=== PATIENT | male | born 1935 ===

== ENCOUNTER 2020-08-26 13:12 | Inpatient (IN) ==
[2020-08-26 14:34] LABS: INR 1.55 (0.82-1.09)
[2020-08-26 14:35] LABS: ABS Lymphocytes 0.7 10^3/ul (1.0-4.8); ABS Monocytes 0.1 10^3/ul (0-0.8); ABS Neutrophils 6.4 10^3/ul (1.5-7.7); Eosinophil % 0.4 %; Hematocrit 30 % (42-52); Hemoglobin 10.2 g/dL (14.0-18.0); Mean Corpuscular HGB Conc 34 g/dL (31-36); Mean Corpuscular Hemoglobin 37 pg (27-31); Mean Corpuscular Volume 110 fL (80-94); Mean Platelet Volume 9.4 fL (7.4-10.4); Platelet Count 69 10^3/uL (150-450); Red Blood Count 2.73 10^6 /uL (4.18-5.48); Red Cell Distribution Width 19 % (10-15); White Blood Count 7.2 10^3/uL (3.5-10.8)
[2020-08-26 14:47] LABS: ALT 36 U/L (7-52); Albumin 2.4 g/dL (3.2-5.2); Albumin/Globulin Ratio 0.9 (1-3); Alkaline Phosphatase 85 U/L (34-104); BUN/Creatinine Ratio 28.6 (8-20); Blood Urea Nitrogen 73 mg/dL (6-24); CO2 Carbon Dioxide 26 mmol/L (22-32); Calcium 7.3 mg/dL (8.6-10.3); Chloride 101 mmol/L (101-111); EGFR African American 29.3 (>60); EGFR Non-African American 24.2 (>60); Globulin 2.6 g/dL (2-4); Glucose 114 mg/dL (70-100); Sodium 136 mmol/L (135-145)
[2020-08-26 14:49] LABS: Anion Gap 9 mmol/L (2-11)
[2020-08-26] MEDS ORDERED: NS 0.9% 1000 ml BAG 1,000 ML IV ONE (14:53)
[2020-08-26] MEDS ORDERED: NS 0.9% 1000 ml BAG 1,000 ML IV SCH (17:00)
[2020-08-26 17:31] LABS: Platelet Count 69 10^3/ul (150-450)
[2020-08-26 17:45] LABS: Activated Partial Thrombo Time 28.4 seconds (26.0-38.0); Fibrinogen 428.9 mg/dL (110.8-404.3)
[2020-08-26] MEDS ORDERED: Morphine 2 MG/ML SYRINGE IV PRN (18:33)
[2020-08-26 18:49] LABS: Urine Appearance Cloudy; Urine Bilirubin Negative (Negative); Urine Blood 2+ (Negative); Urine Color Amber; Urine Glucose Negative (Negative); Urine Ketones Negative (Negative); Urine Nitrite Negative (Negative); Urine Protein Negative (Negative); Urine Specific Gravity 1.019 (1.010-1.030); Urine Urobilinogen Negative (Negative)
[2020-08-26 18:53] LABS: Urine Bacteria 2+ (Absent); Urine Red Blood Cell Trace(0-2/hpf) (Absent); Urine White Blood Cell 2+(11-20/hpf) (Absent)
[2020-08-26 18:55] LABS: Schistocytes ABSENT
[2020-08-26 18:57] LABS: Urine Creatinine Concentration 113.9 mg/dL
[2020-08-26 20:42] LABS: TSH Ultra Thyroid Stim Horm 2.06 mcIU/mL (0.34-5.60)
[2020-08-26 20:53] LABS: Folate > 20.00 ng/mL (>3.99)
[2020-08-26 20:55] LABS: Vitamin B12 856 pg/mL (180-914)
[2020-08-26 21:36] LABS: Potassium Redraw 4.4 mmol/L (3.5-5.0)
[2020-08-26] MEDS: Insulin GLARGINE 100 un/ml 10 ml VIAL SUBCUT SCH (21:49)
[2020-08-27] MEDS ORDERED: NS 0.9% 1000 ml BAG 1,000 ML IV SCH (07:00)
[2020-08-27 08:16] LABS: Nucleated Red Blood Cells % 0.1
[2020-08-27 08:17] LABS: ABS Lymphocytes 0.5 10^3/ul (1.0-4.8); ABS Monocytes 0.1 10^3/ul (0-0.8); ABS Neutrophils 4.7 10^3/ul (1.5-7.7); Corrected Retic Count 1.6 % (0.5-1.5); Eosinophil % 0.1 %; Hematocrit 25 % (42-52); Hematocrit for Retic CNT 25 % (42-52); Hemoglobin 8.6 g/dL (14.0-18.0); Immature Retic Fraction 0.59; Lymphocyte % 10.1 %; Mean Corpuscular HGB Conc 34 g/dL (31-36); Mean Corpuscular Hemoglobin 38 pg (27-31); Mean Corpuscular Volume 110 fL (80-94); Platelet Count 60 10^3/uL (150-450); Red Cell Distribution Width 19 % (10-15); White Blood Count 5.4 10^3/uL (3.5-10.8)
[2020-08-27 08:32] LABS: Albumin 2.1 g/dL (3.2-5.2); Albumin/Globulin Ratio 0.9 (1-3); BUN/Creatinine Ratio 32.4 (8-20); Calcium 6.9 mg/dL (8.6-10.3); EGFR African American 43.3 (>60); EGFR Non-African American 35.8 (>60); Globulin 2.4 g/dL (2-4); Potassium 3.9 mmol/L (3.5-5.0); Total Bilirubin 2.2 mg/dL (0.2-1.0); Total Protein 4.5 g/dL (6.4-8.9)
[2020-08-27 17:11] LABS: Hematocrit 28 % (42-52); Hemoglobin 9.4 g/dL (14.0-18.0)
[2020-08-27 17:29] LABS: Albumin 2.3 g/dL (3.2-5.2); Albumin/Globulin Ratio 0.9 (1-3); Globulin 2.5 g/dL (2-4); Indirect Bilirubin 1.3 mg/dL (0.3-1.0); Total Bilirubin 2.2 mg/dL (0.2-1.0); Total Protein 4.8 g/dL (6.4-8.9)
[2020-08-27] MEDS: Insulin GLARGINE 100 un/ml 10 ml VIAL SUBCUT SCH (22:17)
[2020-08-27] MEDS ORDERED: NS 0.9% 1000 ml BAG 1,000 ML IV ONE (23:30)
[2020-08-28 07:10] LABS: ABS Eosinophils 0.1 10^3/ul (0-0.6); ABS Lymphocytes 0.4 10^3/ul (1.0-4.8); ABS Monocytes 0.1 10^3/ul (0-0.8); Eosinophil % 1.6 %; Hematocrit 25 % (42-52); Lymphocyte % 11.1 %; Mean Corpuscular HGB Conc 33 g/dL (31-36); Mean Corpuscular Hemoglobin 36 pg (27-31); Mean Corpuscular Volume 109 fL (80-94); Mean Platelet Volume 10.5 fL (7.4-10.4); Nucleated Red Blood Cells % 0.1; Platelet Count 49 10^3/uL (150-450); Red Blood Count 2.24 10^6 /uL (4.18-5.48); Red Cell Distribution Width 19 % (10-15); White Blood Count 3.5 10^3/uL (3.5-10.8)
[2020-08-28 07:17] LABS: Albumin 1.8 g/dL (3.2-5.2); Albumin/Globulin Ratio 0.8 (1-3); Calcium 6.7 mg/dL (8.6-10.3); EGFR African American 57.6 (>60); EGFR Non-African American 47.6 (>60); Globulin 2.3 g/dL (2-4); Magnesium 2.1 mg/dL (1.9-2.7); Total Bilirubin 1.8 mg/dL (0.2-1.0); Total Protein 4.1 g/dL (6.4-8.9)
[2020-08-28] MEDS: Dextrose 50% Syringe 50 ml 25 GM/50 ML SYRINGE IV PUSH PRN (08:01)
[2020-08-28] MEDS: KCL 20 MEQ/100 ML IVPREMIX 20 MEQ/100 ML BAG IV SCH ×3 (08:13→12:06)
[2020-08-28] MEDS ORDERED: Potassium Chloride LIQUID 20 MEQ/15 ML LIQUID PO ONE (08:31)
[2020-08-28] MEDS ORDERED: Vancomycin 1,000 MG in NS 0.9% 250 ml 250 ML IVPB ONE (10:21)
[2020-08-28] MEDS ORDERED: Piperacillin/Tazobac ADVAN 3.375 GM in NS 0.9% 100 ml BAG 100 ML IV ONE (10:21)
[2020-08-28] MEDS ORDERED: Vancomycin per Pharmacy 1 EA NOTE FOLLOW UP SCH (11:00)
[2020-08-28] MEDS ORDERED: Zosyn per Pharmacy NOTE FOLLOW UP SCH (11:00)
[2020-08-28 14:25] LABS: Platelet Count 40 10^3/ul (150-450)
[2020-08-28 14:28] LABS: ABS Eosinophils 0.1 10^3/ul (0-0.6); ABS Lymphocytes 0.4 10^3/ul (1.0-4.8); ABS Monocytes 0.1 10^3/ul (0-0.8); ABS Neutrophils 3.8 10^3/ul (1.5-7.7); Eosinophil % 2.1 %; Hematocrit 25 % (42-52); Hemoglobin 8.4 g/dL (14.0-18.0); Lymphocyte % 9.9 %; Mean Corpuscular HGB Conc 33 g/dL (31-36); Mean Corpuscular Hemoglobin 37 pg (27-31); Mean Corpuscular Volume 110 fL (80-94); Mean Platelet Volume 8.8 fL (7.4-10.4); Platelet Count 41 10^3/uL (150-450); Red Blood Count 2.29 10^6 /uL (4.18-5.48); Red Cell Distribution Width 19 % (10-15); White Blood Count 4.4 10^3/uL (3.5-10.8)
[2020-08-28 14:41] LABS: Activated Partial Thrombo Time 33.4 seconds (26.0-38.0); INR 1.35 (0.82-1.09)
[2020-08-28 14:45] LABS: Schistocytes ABSENT
[2020-08-28] MEDS: ZOSYN 3.375 GM Q8H per EXTENDED INFUSION IV SCH ×2 (15:43→23:53)
[2020-08-28] MEDS ORDERED: Phytonadione IV (Adult) 10 MG in NS 0.9% 50 ML 50 ML IV ONE (16:05)
[2020-08-28] MEDS ORDERED: Insulin GLARGINE 100 un/ml 10 ml VIAL SUBCUT SCH (21:00)
[2020-08-28] MEDS: Vancomycin 750 MG in NS 0.9% 250 ML IVPB SCH (21:50)
[2020-08-29 07:49] LABS: Hematocrit 24 % (42-52); Mean Corpuscular HGB Conc 33 g/dL (31-36); Mean Corpuscular Hemoglobin 37 pg (27-31); Mean Corpuscular Volume 110 fL (80-94); Mean Platelet Volume 8.8 fL (7.4-10.4); Platelet Count 33 10^3/uL (150-450); Red Blood Count 2.19 10^6 /uL (4.18-5.48); Red Cell Distribution Width 19 % (10-15); White Blood Count 3.7 10^3/uL (3.5-10.8)
[2020-08-29 07:54] LABS: Albumin 1.6 g/dL (3.2-5.2); Albumin/Globulin Ratio 0.7 (1-3); BUN/Creatinine Ratio 28.7 (8-20); Calcium 6.7 mg/dL (8.6-10.3); EGFR African American 64.4 (>60); EGFR Non-African American 53.2 (>60); Globulin 2.4 g/dL (2-4); Magnesium 2.1 mg/dL (1.9-2.7); Potassium 3.6 mmol/L (3.5-5.0); Total Bilirubin 1.7 mg/dL (0.2-1.0)
[2020-08-29] MEDS: ZOSYN 3.375 GM Q8H per EXTENDED INFUSION IV SCH (10:11)
[2020-08-29] MEDS: Vancomycin 750 MG in NS 0.9% 250 ML IVPB SCH (13:40)
[2020-08-29] MEDS: Ciprofloxacin 400mg IVPREMIX 400 MG/200 ML BAG IVPB SCH (15:29)
[2020-08-30] MEDS: Vancomycin 750 MG in NS 0.9% 250 ML IVPB SCH ×2 (02:38→14:56)
[2020-08-30] MEDS: Ciprofloxacin 400mg IVPREMIX 400 MG/200 ML BAG IVPB SCH ×2 (04:26→17:27)
[2020-08-30 08:10] LABS: Hematocrit 25 % (42-52); Hemoglobin 8.2 g/dL (14.0-18.0); Mean Corpuscular HGB Conc 33 g/dL (31-36); Mean Corpuscular Hemoglobin 36 pg (27-31); Mean Corpuscular Volume 109 fL (80-94); Mean Platelet Volume 10.2 fL (7.4-10.4); Platelet Count 38 10^3/uL (150-450); Red Blood Count 2.26 10^6 /uL (4.18-5.48); Red Cell Distribution Width 19 % (10-15)
[2020-08-30 08:26] LABS: EGFR African American 63.2 (>60); EGFR Non-African American 52.3 (>60)
[2020-08-30] MEDS ORDERED: Vancomycin Trough Check NOTE FOLLOW UP ONE (13:30)
[2020-08-30 15:30] LABS: HIT ELISA 1.821 OD (<0.400); Heparin PF4 Ab Inhibition 98 %
[2020-08-30 17:50] LABS: C Reactive Protein 153.76 mg/L (<8.01)
[2020-08-30 18:38] LABS: Erythrocyte Sed Rate 14 mm/Hr (0-19)
[2020-08-31] MEDS: Vancomycin 750 MG in NS 0.9% 250 ML IVPB SCH ×2 (02:02→16:56)
[2020-08-31] MEDS: Ciprofloxacin 400mg IVPREMIX 400 MG/200 ML BAG IVPB SCH ×2 (03:36→19:07)
[2020-08-31 06:02] LABS: Hematocrit 27 % (42-52); Hemoglobin 9.1 g/dL (14.0-18.0); Mean Corpuscular HGB Conc 34 g/dL (31-36); Mean Corpuscular Hemoglobin 37 pg (27-31); Mean Corpuscular Volume 109 fL (80-94); Mean Platelet Volume 10.8 fL (7.4-10.4); Platelet Count 50 10^3/uL (150-450); Red Blood Count 2.47 10^6 /uL (4.18-5.48); Red Cell Distribution Width 19 % (10-15); White Blood Count 4.8 10^3/uL (3.5-10.8)
[2020-08-31 06:20] LABS: BUN/Creatinine Ratio 29.6 (8-20); Calcium 6.8 mg/dL (8.6-10.3); EGFR African American 42.2 (>60); EGFR Non-African American 34.9 (>60); Potassium 4.7 mmol/L (3.5-5.0)
[2020-08-31 09:21] LABS: C Reactive Protein 109.73 mg/L (<8.01)
[2020-08-31 10:12] LABS: Total Iron Binding Capacity 105 mcg/dL (250-450); Transferrin < 75 mg/dL (203-362)
[2020-08-31 10:16] LABS: Body Fluid Source Synovial Fluid
[2020-08-31 10:30] LABS: Ferritin 1398.9 ng/mL (24-336)
[2020-08-31] MEDS ORDERED: Argatroban 250 MG in NS 0.9% 250 ml 247.5 ML IV SCH (12:00)
[2020-08-31] MEDS ORDERED: NS 0.9% 500 ml BAG 500 ML IV ONE (12:16)
[2020-08-31 12:32] LABS: Body Fluid Mono 4 %; Body Fluid NRBC 1
[2020-08-31 15:10] LABS: Activated Partial Thrombo Time 26.6 seconds (26.0-38.0); INR 1.55 (0.82-1.09)
[2020-08-31] MEDS: Silver Sulfadiazine 1% 20 gm TUBE TOPICAL SCH (20:43)
[2020-08-31] MEDS: Insulin GLARGINE 100 un/ml 10 ml VIAL SUBCUT SCH (21:22)
[2020-09-01] MEDS: Vancomycin 750 MG in NS 0.9% 250 ML IVPB SCH ×2 (01:05→18:22)
[2020-09-01 05:28] LABS: BUN/Creatinine Ratio 30.6 (8-20); Calcium 6.5 mg/dL (8.6-10.3); EGFR African American 40.4 (>60); EGFR Non-African American 33.4 (>60)
[2020-09-01 05:41] LABS: Potassium 3.8 mmol/L (3.5-5.0)
[2020-09-01 06:06] LABS: Hematocrit 18 % (42-52); Hemoglobin 5.6 g/dL (14.0-18.0); Mean Corpuscular HGB Conc 32 g/dL (31-36); Mean Corpuscular Hemoglobin 36 pg (27-31); Mean Corpuscular Volume 114 fL (80-94); Mean Platelet Volume 11.5 fL (7.4-10.4); Platelet Count 38 10^3/uL (150-450); Red Blood Count 1.57 10^6 /uL (4.18-5.48); Red Cell Distribution Width 19 % (10-15); White Blood Count 3.2 10^3/uL (3.5-10.8)
[2020-09-01 06:53] LABS: ABS Lymphocytes 1.2 10^3/ul (1.0-4.8); ABS Monocytes 0.2 10^3/ul (0-0.8); Eosinophil % 0.1 %; Hematocrit 27 % (42-52); Hemoglobin 8.9 g/dL (14.0-18.0); Lymphocyte % 27.7 %; Mean Corpuscular HGB Conc 33 g/dL (31-36); Mean Corpuscular Hemoglobin 37 pg (27-31); Mean Corpuscular Volume 110 fL (80-94); Mean Platelet Volume 10.9 fL (7.4-10.4); Nucleated Red Blood Cells % 0.3; Platelet Count 61 10^3/uL (150-450); Red Blood Count 2.44 10^6 /uL (4.18-5.48); Red Cell Distribution Width 19 % (10-15); White Blood Count 4.5 10^3/uL (3.5-10.8)
[2020-09-01] MEDS ORDERED: Ciprofloxacin 400mg IVPREMIX 400 MG/200 ML BAG IVPB SCH (08:00)
[2020-09-01] MEDS: Silver Sulfadiazine 1% 20 gm TUBE TOPICAL SCH ×2 (09:08→21:46)
[2020-09-01] MEDS ORDERED: Vancomycin Trough Check NOTE FOLLOW UP ONE (13:30)
[2020-09-01] MEDS ORDERED: fentaNYL 250 mcg/5 ml 50 MCG/ML 5 ml VIAL (250 MCG) ONE (14:57)
[2020-09-01] MEDS ORDERED: Lidocaine 2% PF 5 ML VIAL ONE (14:57)
[2020-09-01] MEDS ORDERED: Propofol 10 MG/ML 20 ML BTL ONE (14:57)
[2020-09-01] MEDS ORDERED: Ondansetron 4 mg VIAL 2 MG/ML 2 ml VIAL ONE (16:39)
[2020-09-01] MEDS ORDERED: Phenylephrine 40 mcg/mL 10mL (400mcg) SYRINGE ONE (16:58)
[2020-09-01] MEDS ORDERED: Phenylephrine IV 10 MG/ML 1 ml VIAL ONE (16:58)
[2020-09-01] MEDS ORDERED: HYDROmorphone 1 MG/1 ML SYRINGE IV PRN (16:59)
[2020-09-01] MEDS ORDERED: Ondansetron 4 mg VIAL 2 MG/ML 2 ml VIAL IV PRN (16:59)
[2020-09-01] MEDS ORDERED: Naloxone 0.4 mg VIAL 0.4 mg/ml 1 ml VIAL IV PRN (16:59)
[2020-09-01] MEDS ORDERED: fentaNYL 100 mcg/2 ml 50 MCG/ML VIAL IV PRN (16:59)
[2020-09-01] MEDS ORDERED: Argatroban 250 MG in NS 0.9% 250 ml 247.5 ML IV SCH (18:00)
[2020-09-01] MEDS: Insulin GLARGINE 100 un/ml 10 ml VIAL SUBCUT SCH (21:45)
[2020-09-02 04:41] LABS: Hematocrit 26 % (42-52); Hemoglobin 8.3 g/dL (14.0-18.0); Mean Corpuscular HGB Conc 33 g/dL (31-36); Mean Corpuscular Hemoglobin 36 pg (27-31); Mean Corpuscular Volume 109 fL (80-94); Mean Platelet Volume 10.1 fL (7.4-10.4); Platelet Count 85 10^3/uL (150-450); Red Blood Count 2.33 10^6 /uL (4.18-5.48); Red Cell Distribution Width 19 % (10-15); White Blood Count 4.8 10^3/uL (3.5-10.8)
[2020-09-02 04:55] LABS: BUN/Creatinine Ratio 33.3 (8-20); Calcium 6.9 mg/dL (8.6-10.3); EGFR African American 40.7 (>60); EGFR Non-African American 33.6 (>60); Potassium 4.5 mmol/L (3.5-5.0)
[2020-09-02 05:35] LABS: Activated Partial Thrombo Time 114.7 seconds (26.0-38.0); INR 7.03 (0.82-1.09)
[2020-09-02] MEDS ORDERED: Vancomycin Random Level NOTE FOLLOW UP ONE (06:00)
[2020-09-02 08:12] LABS: Magnesium 2.2 mg/dL (1.9-2.7); Phosphorus 3.2 mg/dL (2.5-5.0)
[2020-09-02] MEDS: Silver Sulfadiazine 1% 20 gm TUBE TOPICAL SCH (08:22)
[2020-09-02 10:03] LABS: Activated Partial Thrombo Time 96.9 seconds (26.0-38.0)
[2020-09-02 10:15] LABS: INR 5.79 (0.82-1.09)
[2020-09-02] MEDS ORDERED: Albumin Human 5% 12.5 GM/250 ML BTL IV ONE (10:38)
[2020-09-02 11:06] LABS: Urine Appearance Clear; Urine Bilirubin Negative (Negative); Urine Blood 1+ (Negative); Urine Color Amber; Urine Glucose Negative (Negative); Urine Ketones Negative (Negative); Urine Nitrite Negative (Negative); Urine Protein Negative (Negative); Urine Specific Gravity 1.019 (1.010-1.030); Urine Urobilinogen Negative (Negative)
[2020-09-02 11:14] LABS: Urine Bacteria Absent (Absent); Urine Red Blood Cell Trace(0-2/hpf) (Absent); Urine White Blood Cell Trace(0-5/hpf) (Absent)
[2020-09-02] MEDS: Lactated Ringers 1000 ml BAG 1,000 ML IV SCH ×2 (13:20→21:20)
[2020-09-02] MEDS: Insulin GLARGINE 100 un/ml 10 ml VIAL SUBCUT SCH (21:34)
[2020-09-03] MEDS: Silver Sulfadiazine 1% 85 GM TOPICAL SCH ×3 (00:50→21:25)
[2020-09-03] MEDS: Lactated Ringers 1000 ml BAG 1,000 ML IV SCH (04:06)
[2020-09-03] MEDS: Silver Sulfadiazine 1% 20 gm TUBE TOPICAL SCH (04:59)
[2020-09-03 05:07] LABS: EGFR African American 53.7 (>60); EGFR Non-African American 44.4 (>60)
[2020-09-03 05:08] LABS: Hematocrit 22 % (42-52); Hemoglobin 7.4 g/dL (14.0-18.0); Mean Corpuscular HGB Conc 33 g/dL (31-36); Mean Corpuscular Hemoglobin 36 pg (27-31); Mean Corpuscular Volume 109 fL (80-94); Mean Platelet Volume 9.9 fL (7.4-10.4); Platelet Count 79 10^3/uL (150-450); Red Blood Count 2.06 10^6 /uL (4.18-5.48); Red Cell Distribution Width 19 % (10-15); White Blood Count 3.7 10^3/uL (3.5-10.8)
[2020-09-03 05:35] LABS: Vancomycin Random 15.4 mcg/mL
[2020-09-03] MEDS ORDERED: VANCOMYCIN 1250 MG X 1 DOSE, THEN PER PHARMACY PROTOCOL IVPB ONE (09:00)
[2020-09-03] MEDS ORDERED: Haloperidol 5 mg/ml SDV IV/IM 5 MG/ML AMP ONE (12:53)
[2020-09-03 13:05] LABS: INR 4.88 (0.82-1.09)
[2020-09-03] MEDS ORDERED: Haloperidol 5 mg/ml SDV IV/IM 5 MG/ML AMP IV SLOW PU ONE (13:15)
[2020-09-03] MEDS ORDERED: Haloperidol 5 mg/ml SDV IV/IM 5 MG/ML AMP IV SLOW PU PRN (13:16)
[2020-09-03] MEDS: Thiamine 100 MG/ML 2 ml VIAL 500 MG in NS 0.9% 250 ml 250 ML IV SCH ×2 (16:15→21:26)
[2020-09-03] MEDS: Insulin GLARGINE 100 un/ml 10 ml VIAL SUBCUT SCH ×2 (21:05→21:24)
[2020-09-04] MEDS: Dextrose 50% Syringe 50 ml 25 GM/50 ML SYRINGE IV PUSH PRN (00:31)
[2020-09-04] MEDS: Lactated Ringers 1000 ml BAG 1,000 ML IV SCH ×4 (00:58→22:21)
[2020-09-04 05:22] LABS: ABS Monocytes 0.2 10^3/ul (0-0.8); ABS Neutrophils 3.3 10^3/ul (1.5-7.7); Eosinophil % 0.5 %; Hematocrit 24 % (42-52); Lymphocyte % 22.4 %; Mean Corpuscular HGB Conc 34 g/dL (31-36); Mean Corpuscular Hemoglobin 37 pg (27-31); Mean Corpuscular Volume 109 fL (80-94); Mean Platelet Volume 9.8 fL (7.4-10.4); Nucleated Red Blood Cells % 0.1; Platelet Count 91 10^3/uL (150-450); Red Blood Count 2.18 10^6 /uL (4.18-5.48); Red Cell Distribution Width 19 % (10-15); White Blood Count 4.4 10^3/uL (3.5-10.8)
[2020-09-04 05:24] LABS: INR 4.72 (0.82-1.09)
[2020-09-04 05:29] LABS: EGFR African American 55.8 (>60); EGFR Non-African American 46.1 (>60)
[2020-09-04 05:56] LABS: Vancomycin Random 18.9 mcg/mL
[2020-09-04] MEDS: Thiamine 100 MG/ML 2 ml VIAL 500 MG in NS 0.9% 250 ml 250 ML IV SCH ×3 (05:57→22:18)
[2020-09-04] MEDS ORDERED: Vancomycin Random Level NOTE FOLLOW UP ONE (06:00)
[2020-09-04] MEDS ORDERED: Vancomycin 750 MG in NS 0.9% 250 ML IVPB ONE (09:30)
[2020-09-04 10:02] LABS: Calcium 6.7 mg/dL (8.6-10.3); Potassium 4.1 mmol/L (3.5-5.0)
[2020-09-04] MEDS: Silver Sulfadiazine 1% 85 GM TOPICAL SCH ×2 (10:07→21:14)
[2020-09-04 11:00] LABS: BUN/Creatinine Ratio 31.3 (8-20)
[2020-09-04] MEDS: Warfarin DAILY REMINDER **NOTE FOLLOW UP SCH (17:41)
[2020-09-04] MEDS: ARGATROBAN IV SCH (18:41)
[2020-09-04] MEDS: Insulin GLARGINE 100 un/ml 10 ml VIAL SUBCUT SCH (21:24)
[2020-09-05] MEDS: ARGATROBAN IV SCH (03:05)
[2020-09-05] MEDS: Lactated Ringers 1000 ml BAG 1,000 ML IV SCH ×4 (05:12→22:05)
[2020-09-05] MEDS: Thiamine 100 MG/ML 2 ml VIAL 500 MG in NS 0.9% 250 ml 250 ML IV SCH ×2 (05:27→14:12)
[2020-09-05 05:34] LABS: INR 4.62 (0.82-1.09)
[2020-09-05 05:36] LABS: Hematocrit 23 % (42-52); Hemoglobin 7.8 g/dL (14.0-18.0); Mean Corpuscular HGB Conc 34 g/dL (31-36); Mean Corpuscular Hemoglobin 37 pg (27-31); Mean Corpuscular Volume 109 fL (80-94); Mean Platelet Volume 9.4 fL (7.4-10.4); Platelet Count 96 10^3/uL (150-450); Red Blood Count 2.12 10^6 /uL (4.18-5.48); Red Cell Distribution Width 19 % (10-15); White Blood Count 5.1 10^3/uL (3.5-10.8)
[2020-09-05 05:43] LABS: BUN/Creatinine Ratio 29.1 (8-20); Blood Urea Nitrogen 43 mg/dL (6-24); CO2 Carbon Dioxide 26 mmol/L (22-32); Calcium 6.5 mg/dL (8.6-10.3); EGFR African American 54.9 (>60); EGFR Non-African American 45.4 (>60); Glucose 100 mg/dL (70-100); Magnesium 1.8 mg/dL (1.9-2.7); Phosphorus 2.7 mg/dL (2.5-5.0); Sodium 138 mmol/L (135-145)
[2020-09-05 05:47] LABS: Chloride 112 mmol/L (101-111)
[2020-09-05] MEDS ORDERED: Vancomycin Random Level NOTE FOLLOW UP ONE (06:00)
[2020-09-05] MEDS ORDERED: Magnesium Sulfate 2 gm BAG 2 GM/50 ML BAG IVPB ONE (07:20)
[2020-09-05] MEDS: Silver Sulfadiazine 1% 85 GM TOPICAL SCH ×2 (07:50→21:22)
[2020-09-05] MEDS: Vancomycin 750 MG in NS 0.9% 250 ML IVPB SCH (08:58)
[2020-09-05] MEDS ORDERED: Albumin Human 5% 12.5 GM/250 ML BTL IV ONE (13:40)
[2020-09-05] MEDS ORDERED: Lactated Ringers 1000 ml BAG 500 ML IV ONE (13:41)
[2020-09-05] MEDS ORDERED: Albumin Human 25% 25 GM/100 ML BTL IV ONE (16:07)
[2020-09-05] MEDS ORDERED: Furosemide 40 mg/4 ml IV VIAL IV SLOW PU ONE (16:30)
[2020-09-05] MEDS: Warfarin DAILY REMINDER **NOTE FOLLOW UP SCH (17:47)
[2020-09-05] MEDS: Insulin GLARGINE 100 un/ml 10 ml VIAL SUBCUT SCH (20:19)
[2020-09-06 04:10] LABS: Hematocrit 23 % (42-52); Hemoglobin 7.8 g/dL (14.0-18.0); Mean Corpuscular HGB Conc 33 g/dL (31-36); Mean Corpuscular Hemoglobin 36 pg (27-31); Mean Corpuscular Volume 109 fL (80-94); Mean Platelet Volume 9.1 fL (7.4-10.4); Platelet Count 103 10^3/uL (150-450); Red Blood Count 2.14 10^6 /uL (4.18-5.48); Red Cell Distribution Width 19 % (10-15)
[2020-09-06 04:11] LABS: INR 1.88 (0.82-1.09)
[2020-09-06 04:21] LABS: BUN/Creatinine Ratio 26.9 (8-20); Calcium 6.9 mg/dL (8.6-10.3); EGFR African American 51.7 (>60); EGFR Non-African American 42.7 (>60); Magnesium 2.1 mg/dL (1.9-2.7); Potassium 4.1 mmol/L (3.5-5.0)
[2020-09-06] MEDS: Lactated Ringers 1000 ml BAG 1,000 ML IV SCH ×2 (05:54→11:56)
[2020-09-06] MEDS: Silver Sulfadiazine 1% 85 GM TOPICAL SCH ×2 (09:17→23:49)
[2020-09-06] MEDS: Vancomycin 750 MG in NS 0.9% 250 ML IVPB SCH (09:17)
[2020-09-06] MEDS ORDERED: Albumin Human 25% 25 GM/100 ML BTL IV ONE (10:32)
[2020-09-06] MEDS ORDERED: Furosemide 40 mg/4 ml IV VIAL IV SLOW PU ONE (11:00)
[2020-09-06] MEDS: Thiamine 100 MG/ML 2 ml VIAL 250 MG in NS 0.9% 100 ml BAG 100 ML IV SCH (14:46)
[2020-09-06] MEDS: Warfarin DAILY REMINDER **NOTE FOLLOW UP SCH (18:14)
[2020-09-06] MEDS: Insulin GLARGINE 100 un/ml 10 ml VIAL SUBCUT SCH (20:37)
[2020-09-07 06:30] LABS: INR 1.8 (0.82-1.09)
[2020-09-07 06:32] LABS: BUN/Creatinine Ratio 27.9 (8-20); Calcium 7.1 mg/dL (8.6-10.3); EGFR African American 52.5 (>60); EGFR Non-African American 43.4 (>60)
[2020-09-07 06:34] LABS: Hematocrit 24 % (42-52); Hemoglobin 7.9 g/dL (14.0-18.0); Mean Corpuscular HGB Conc 34 g/dL (31-36); Mean Corpuscular Hemoglobin 36 pg (27-31); Mean Corpuscular Volume 108 fL (80-94); Mean Platelet Volume 9.1 fL (7.4-10.4); Platelet Count 92 10^3/uL (150-450); Red Blood Count 2.18 10^6 /uL (4.18-5.48); Red Cell Distribution Width 19 % (10-15); White Blood Count 6.6 10^3/uL (3.5-10.8)
[2020-09-07] MEDS ORDERED: Vancomycin Trough Check NOTE FOLLOW UP ONE (08:30)
[2020-09-07] MEDS: Vancomycin 750 MG in NS 0.9% 250 ML IVPB SCH (11:11)
[2020-09-07] MEDS: Silver Sulfadiazine 1% 85 GM TOPICAL SCH ×2 (12:01→20:49)
[2020-09-07] MEDS: Thiamine 100 MG/ML 2 ml VIAL 250 MG in NS 0.9% 100 ml BAG 100 ML IV SCH (14:50)
[2020-09-07] MEDS: Warfarin DAILY REMINDER **NOTE FOLLOW UP SCH (17:50)
[2020-09-07] MEDS: Insulin GLARGINE 100 un/ml 10 ml VIAL SUBCUT SCH (20:46)
[2020-09-08 04:15] LABS: Hematocrit 24 % (42-52); Hemoglobin 8.1 g/dL (14.0-18.0); Mean Corpuscular HGB Conc 33 g/dL (31-36); Mean Corpuscular Hemoglobin 36 pg (27-31); Mean Corpuscular Volume 108 fL (80-94); Mean Platelet Volume 9.5 fL (7.4-10.4); Platelet Count 99 10^3/uL (150-450); Red Blood Count 2.24 10^6 /uL (4.18-5.48); Red Cell Distribution Width 19 % (10-15); White Blood Count 7.8 10^3/uL (3.5-10.8)
[2020-09-08 04:26] LABS: Calcium 7.2 mg/dL (8.6-10.3); EGFR African American 50.9 (>60); EGFR Non-African American 42.1 (>60); Potassium 4.3 mmol/L (3.5-5.0)
[2020-09-08 07:50] LABS: Activated Partial Thrombo Time 37.6 seconds (26.0-38.0); INR 2.24 (0.82-1.09)
[2020-09-08] MEDS: Vancomycin 750 MG in NS 0.9% 250 ML IVPB SCH (10:40)
[2020-09-08] MEDS: Silver Sulfadiazine 1% 85 GM TOPICAL SCH (10:43)
[2020-09-08] MEDS: Warfarin DAILY REMINDER **NOTE FOLLOW UP SCH (18:33)
[2020-09-08] MEDS: Insulin GLARGINE 100 un/ml 10 ml VIAL SUBCUT SCH (21:27)
[2020-09-09] MEDS: Silver Sulfadiazine 1% 85 GM TOPICAL SCH ×2 (00:50→09:52)
[2020-09-09 05:17] LABS: INR 2.98 (0.82-1.09)
[2020-09-09 05:18] LABS: ABS Lymphocytes 2.1 10^3/ul (1.0-4.8); ABS Monocytes 0.5 10^3/ul (0-0.8); ABS Neutrophils 4.7 10^3/ul (1.5-7.7); Eosinophil % 0.3 %; Hematocrit 25 % (42-52); Hemoglobin 7.9 g/dL (14.0-18.0); Lymphocyte % 28.4 %; Mean Corpuscular HGB Conc 32 g/dL (31-36); Mean Corpuscular Hemoglobin 35 pg (27-31); Mean Corpuscular Volume 108 fL (80-94); Nucleated Red Blood Cells % 0.1; Platelet Count 108 10^3/uL (150-450); Red Blood Count 2.28 10^6 /uL (4.18-5.48); Red Cell Distribution Width 19 % (10-15); White Blood Count 7.4 10^3/uL (3.5-10.8)
[2020-09-09 05:27] LABS: BUN/Creatinine Ratio 33.8 (8-20); Calcium 7.5 mg/dL (8.6-10.3); EGFR African American 51.3 (>60); EGFR Non-African American 42.4 (>60); Potassium 4.4 mmol/L (3.5-5.0)
[2020-09-09] MEDS ORDERED: Vancomycin Trough Check NOTE FOLLOW UP ONE (08:30)
[2020-09-09] MEDS: Vancomycin 750 MG in NS 0.9% 250 ML IVPB SCH (10:18)
[2020-09-09] MEDS ORDERED: Warfarin per PHARMACY **NOTE FOLLOW UP SCH (11:00)
[2020-09-09] MEDS: Vancomycin 500 MG in NS 0.9% 250 ML IVPB SCH (12:19)
[2020-09-09] MEDS: Warfarin DAILY REMINDER **NOTE FOLLOW UP SCH (18:26)
[2020-09-10] MEDS: Insulin GLARGINE 100 un/ml 10 ml VIAL SUBCUT SCH (00:02)
[2020-09-10] MEDS: Silver Sulfadiazine 1% 85 GM TOPICAL SCH ×3 (00:03→11:18)
[2020-09-10 08:03] LABS: INR 4.78 (0.82-1.09)
[2020-09-10 08:46] LABS: ABS Lymphocytes 1.3 10^3/ul (1.0-4.8); ABS Monocytes 0.4 10^3/ul (0-0.8); ABS Neutrophils 4.3 10^3/ul (1.5-7.7); Eosinophil % 0.1 %; Hematocrit 24 % (42-52); Hemoglobin 7.7 g/dL (14.0-18.0); Lymphocyte % 22.3 %; Mean Corpuscular HGB Conc 33 g/dL (31-36); Mean Corpuscular Hemoglobin 35 pg (27-31); Mean Corpuscular Volume 109 fL (80-94); Mean Platelet Volume 9.5 fL (7.4-10.4); Nucleated Red Blood Cells % 0.2; Platelet Count 89 10^3/uL (150-450); Red Blood Count 2.18 10^6 /uL (4.18-5.48); Red Cell Distribution Width 19 % (10-15)
[2020-09-10 08:58] LABS: BUN/Creatinine Ratio 36.9 (8-20); Calcium 7.4 mg/dL (8.6-10.3); EGFR African American 51.3 (>60); EGFR Non-African American 42.4 (>60); Potassium 4.5 mmol/L (3.5-5.0)
[2020-09-10 09:23] LABS: C Reactive Protein 88.75 mg/L (<8.01)
[2020-09-10] MEDS: Vancomycin 500 MG in NS 0.9% 250 ML IVPB SCH (10:52)
[2020-09-10] MEDS ORDERED: Warfarin - No Order Today **NOTE FOLLOW UP ONE (17:00)
[2020-09-10] MEDS: Warfarin DAILY REMINDER **NOTE FOLLOW UP SCH (17:28)
[2020-09-10] MEDS ORDERED: Haloperidol 5 mg/ml SDV IV/IM 5 MG/ML AMP IV SLOW PU ONE (17:47)
[2020-09-10] MEDS ORDERED: Saline FLUSH-CENTRAL 10 ML SYRINGE CENT\\PICC SCH (18:00)
[2020-09-11] MEDS: Nystatin TOP POWDER 15 GM BTL TOPICAL SCH ×3 (00:01→23:18)
[2020-09-11] MEDS: Silver Sulfadiazine 1% 85 GM TOPICAL SCH ×3 (00:01→23:17)
[2020-09-11] MEDS: Insulin GLARGINE 100 un/ml 10 ml VIAL SUBCUT SCH ×2 (00:02→23:37)
[2020-09-11] MEDS: Sodium Chloride FLUSH 10 ml SYRINGE IV FLUSH SCH ×3 (00:14→23:19)
[2020-09-11 02:24] LABS: Hematocrit 28 % (42-52); Hemoglobin 9.2 g/dL (14.0-18.0)
[2020-09-11 05:32] LABS: Hematocrit 29 % (42-52); Hemoglobin 9.5 g/dL (14.0-18.0); Mean Corpuscular HGB Conc 32 g/dL (31-36); Mean Corpuscular Hemoglobin 34 pg (27-31); Mean Corpuscular Volume 106 fL (80-94); Mean Platelet Volume 9.6 fL (7.4-10.4); Platelet Count 108 10^3/uL (150-450); Red Blood Count 2.76 10^6 /uL (4.18-5.48); Red Cell Distribution Width 21 % (10-15); White Blood Count 7.5 10^3/uL (3.5-10.8)
[2020-09-11 05:36] LABS: BUN/Creatinine Ratio 34.6 (8-20); Calcium 7.5 mg/dL (8.6-10.3); EGFR African American 49.5 (>60); EGFR Non-African American 40.9 (>60); Potassium 4.6 mmol/L (3.5-5.0)
[2020-09-11] MEDS ORDERED: Vancomycin Trough Check NOTE FOLLOW UP ONE (10:30)
[2020-09-11 15:08] LABS: Vancomycin Trough 16.1 mcg/mL
[2020-09-11 15:10] LABS: EGFR African American 48.1 (>60); EGFR Non-African American 39.8 (>60)
[2020-09-11 15:19] LABS: INR 7.36 (0.82-1.09)
[2020-09-11] MEDS ORDERED: Phytonadione Oral Solution 5 MG/25 ML UDC PO ONE (15:30)
[2020-09-11] MEDS ORDERED: Warfarin - No Order Today **NOTE FOLLOW UP ONE (17:00)
[2020-09-11] MEDS: Vancomycin 500 MG in NS 0.9% 250 ML IVPB SCH (17:05)
[2020-09-12] MEDS: Silver Sulfadiazine 1% 85 GM TOPICAL SCH ×2 (09:19→20:20)
[2020-09-12] MEDS: Nystatin TOP POWDER 15 GM BTL TOPICAL SCH ×2 (09:19→20:20)
[2020-09-12] MEDS: Sodium Chloride FLUSH 10 ml SYRINGE IV FLUSH SCH ×2 (09:20→20:21)
[2020-09-12 09:31] VITALS: BP 123/65
[2020-09-12] MEDS: Vancomycin 500 MG in NS 0.9% 250 ML IVPB SCH (11:13)
[2020-09-12] MEDS ORDERED: LORazepam 2 mg VIAL 1 ml IV PUSH PRN (12:05)
[2020-09-12] MEDS ORDERED: Lorazepam PYXIS KEY PRN (12:05)
[2020-09-12] MEDS: Morphine ORAL CONCENTRATE 5 MG/0.25 ML ORAL.SYRIN SL PRN ×5 (12:25→23:54)
[2020-09-12] MEDS: Atropine 1% (ORAL/SL) 15 ML BTL SL PRN ×2 (20:15→23:49)
[2020-09-13] MEDS: Morphine ORAL CONCENTRATE 5 MG/0.25 ML ORAL.SYRIN SL PRN ×3 (07:10→15:04)
[2020-09-13] MEDS: Nystatin TOP POWDER 15 GM BTL TOPICAL SCH ×3 (08:02→23:09)
[2020-09-13] MEDS: Silver Sulfadiazine 1% 85 GM TOPICAL SCH ×2 (08:02→19:00)
[2020-09-13] MEDS: Sodium Chloride FLUSH 10 ml SYRINGE IV FLUSH SCH ×2 (08:02→23:10)
[2020-09-13] MEDS ORDERED: Vancomycin Trough Check NOTE FOLLOW UP ONE (10:30)
[2020-09-13] MEDS: Atropine 1% (ORAL/SL) 15 ML BTL SL PRN ×2 (16:14→23:10)
[2020-09-14] MEDS: Atropine 1% (ORAL/SL) 15 ML BTL SL PRN (07:00)
[2020-09-14] MEDS: Nystatin TOP POWDER 15 GM BTL TOPICAL SCH (07:01)
[2020-09-14] MEDS: Silver Sulfadiazine 1% 85 GM TOPICAL SCH (07:02)
[2020-09-14] MEDS: Sodium Chloride FLUSH 10 ml SYRINGE IV FLUSH SCH ×2 (07:02→21:07)
[2020-09-14] MEDS ORDERED: LORazepam 2 mg VIAL 1 ml IV PUSH PRN (14:09)
[2020-09-14] MEDS: Glycopyrrolate IV 0.2 MG/ML 1 ML VIAL IV SLOW PU SCH ×2 (15:22→21:07)
[2020-09-15] MEDS: Glycopyrrolate IV 0.2 MG/ML 1 ML VIAL IV SLOW PU SCH ×4 (04:48→20:40)
[2020-09-15] MEDS: Sodium Chloride FLUSH 10 ml SYRINGE IV FLUSH SCH ×2 (08:19→20:40)
[2020-09-16] MEDS: Glycopyrrolate IV 0.2 MG/ML 1 ML VIAL IV SLOW PU SCH ×4 (02:33→20:59)
[2020-09-16] MEDS: Morphine 2 MG/ML SYRINGE IV PRN ×3 (09:16→21:18)
[2020-09-16] MEDS: Sodium Chloride FLUSH 10 ml SYRINGE IV FLUSH SCH ×2 (09:16→20:59)
== END 2020-09-16 22:37 | disposition expired | DRG 853 ==
LOC: ED 13:12 → SUATTDRO 18:49 → MED 18:49 → ICU 08-31 11:55 → MED 09-06 16:15
PROVIDERS: ADMIT Internal Medicine; ATTEND Internal Medicine